=== PATIENT | female | born 1990 | race Caucasian/White ===

== ENCOUNTER 2017-07-26 15:16 | Emergency (ER) | payer OTHER ==
[~2017-07-26] VITALS: Ht 149.9 cm; Wt 90.8 kg
[2017-07-26 15:26] VITALS: Ht 149.9 cm; Wt 90.8 kg
[2017-07-26 16:23] LABS: BASOPHIL % 0.4 % (0-2); PLATELET COUNT 327 x10^3mcL (130-400)
[2017-07-26 16:37] LABS: CALCIUM 8.6 mg/dL (8.5-10.1); CARBON DIOXIDE 30.2 mmol/L (21-32); CHLORIDE SERUM 102 mmol/L (98-107); CREATININE SERUM 0.7 mg/dL (0.6-1.0); GFR1 > 60 mL/min; GLUCOSE SERUM 91 mg/dL (74-106); POTASSIUM SERUM 3.8 mmol/L (3.5-5.1); SODIUM SERUM 140 mmol/L (136-145)
[2017-07-26 16:40] LABS: ALBUMIN 3.5 g/dL (3.4-5.0); ALKALINE PHOSPHATASE 63 U/L (46-116); ALT/SGPT 21 U/L (14-59); AST/SGOT 19 U/L (15-37); BILIRUBIN TOTAL 0.2 mg/dL (0.20-1.00); TOTAL PROTEIN, SERUM 7.3 g/dL (6.4-8.2)
[2017-07-26 17:27] VITALS: BP 110/65
== END 2017-07-26 17:27 | disposition home or self-care (01) ==
LOC: ED 15:16
PROVIDERS: Emergency Medicine
DX: K52.9 Noninfective gastroenteritis and colitis, unspecified (principal); F20.9 Schizophrenia, unspecified
CPT/HCPCS: 36415; J0500; J1885

== ENCOUNTER 2017-07-28 16:55 | Emergency (ER) | payer OTHER ==
[~2017-07-28] VITALS: Ht 149.9 cm; Wt 90.7 kg
[2017-07-28 17:05] VITALS: BP 113/57; Ht 149.9 cm; Wt 90.7 kg
== END 2017-07-28 18:07 | disposition home or self-care (01) ==
LOC: ED 16:55
DX: K59.00 Constipation, unspecified (principal); F20.9 Schizophrenia, unspecified

== ENCOUNTER 2017-09-21 17:17 | Emergency (ER) | payer OTHER ==
[~2017-09-21] VITALS: Ht 149.9 cm; Wt 95.0 kg
[2017-09-21 17:29] VITALS: BP 106/61; Ht 149.9 cm; Wt 95.0 kg
== END 2017-09-21 18:03 | disposition home or self-care (01) ==
LOC: ED 17:17
DX: T63.481A Toxic effect of venom of other arthropod, accidental (unintentional), initial encounter (principal); F20.9 Schizophrenia, unspecified; Y92.89 Other specified places as the place of occurrence of the external cause

== ENCOUNTER 2018-02-27 19:16 | Emergency (ER) | payer OTHER ==
[~2018-02-27] VITALS: Ht 149.9 cm; Wt 91.6 kg
[2018-02-27 19:50] VITALS: Ht 149.9 cm; Wt 91.6 kg
[2018-02-27 22:17] VITALS: BP 123/76
== END 2018-02-27 22:17 | disposition home or self-care (01) ==
LOC: ED 19:16
DX: L25.9 Unspecified contact dermatitis, unspecified cause (principal); I88.9 Nonspecific lymphadenitis, unspecified; F32.9 Major depressive disorder, single episode, unspecified; F20.9 Schizophrenia, unspecified
CPT/HCPCS: J1100; Q0163

== ENCOUNTER 2018-06-12 15:40 | Emergency (ER) | payer MEDICAID ==
[~2018-06-12] VITALS: Ht 149.9 cm; Wt 100.7 kg
[2018-06-12 15:55] VITALS: Ht 149.9 cm; Wt 100.7 kg
[2018-06-12 18:35] VITALS: BP 120/71
== END 2018-06-12 18:35 | disposition home or self-care (01) ==
LOC: ED 15:40
DX: N39.0 Urinary tract infection, site not specified (principal); F31.9 Bipolar disorder, unspecified; Z88.8 Allergy status to other drugs, medicaments and biological substances

== ENCOUNTER 2020-02-23 22:54 | Emergency (ER) | payer MEDICAID ==
[~2020-02-23] VITALS: Ht 149.9 cm; Wt 104.3 kg
[2020-02-23 23:51] VITALS: Ht 149.9 cm; Wt 104.3 kg
[2020-02-24 00:59] VITALS: BP 138/87
== END 2020-02-24 00:59 | disposition home or self-care (01) ==
LOC: ED 22:54
DX: F41.9 Anxiety disorder, unspecified (principal); Z76.0 Encounter for issue of repeat prescription; Z88.8 Allergy status to other drugs, medicaments and biological substances

== ENCOUNTER 2020-02-24 22:59 | Emergency (ER) | payer MEDICAID ==
[~2020-02-24] VITALS: Ht 149.9 cm; Wt 104.3 kg
[2020-02-24 23:09] VITALS: BP 117/74; Ht 149.9 cm; Wt 104.3 kg
== END 2020-02-25 02:31 | disposition left against medical advice (07) ==
LOC: ED 22:59
DX: F41.9 Anxiety disorder, unspecified (principal); Z88.8 Allergy status to other drugs, medicaments and biological substances

== ENCOUNTER 2020-02-25 12:56 | Emergency (ER) | payer MEDICAID ==
[~2020-02-25] VITALS: Ht 149.9 cm; Wt 104.6 kg
[2020-02-25 14:13] VITALS: BP 122/75; Ht 149.9 cm; Wt 104.6 kg
== END 2020-02-25 15:30 | disposition home or self-care (01) ==
LOC: ED 12:56
DX: F41.9 Anxiety disorder, unspecified (principal); E78.00 Pure hypercholesterolemia, unspecified; Z76.0 Encounter for issue of repeat prescription; Z88.8 Allergy status to other drugs, medicaments and biological substances

== ENCOUNTER 2020-04-07 21:49 | Emergency (ER) | payer OTHER ==
[~2020-04-07] VITALS: Ht 149.9 cm; Wt 111.6 kg
[2020-04-07 21:57] VITALS: BP 139/80; Ht 149.9 cm; Wt 111.6 kg
[2020-04-07 23:23] LABS: BASOPHIL % 0.2 % (0.2-1.3); PLATELET COUNT 388 x10^3mcL (179-408); RED CELL DISTRIBUTION WIDTH 14.3 % (12.3-17.7)
[2020-04-07 23:30] LABS: CALCIUM 9.1 mg/dL (8.5-10.1); CARBON DIOXIDE 33.2 mmol/L (21-32); CHLORIDE SERUM 100 mmol/L (98-107); CREATININE SERUM 0.8 mg/dL (0.6-1.0); GFR1 > 60 mL/min; GLUCOSE SERUM 82 mg/dL (74-106); POTASSIUM SERUM 4.1 mmol/L (3.5-5.1); SODIUM SERUM 139 mmol/L (136-145)
[2020-04-07 23:34] LABS: ALBUMIN 3.8 g/dL (3.4-5.0); ALKALINE PHOSPHATASE 59 U/L (46-116); ALT/SGPT 30 U/L (14-59); AST/SGOT 18 U/L (15-37); BILIRUBIN TOTAL 0.1 mg/dL (0.20-1.00); LIPASE 166 IU/L (73-393); TOTAL PROTEIN, SERUM 8.2 g/dL (6.4-8.2)
== END 2020-04-08 00:14 | disposition left against medical advice (07) ==
LOC: ED 21:49
PROVIDERS: Student in an Organized Health Care Education/Training Program
DX: N12 Tubulo-interstitial nephritis, not specified as acute or chronic (principal); E78.00 Pure hypercholesterolemia, unspecified; Z88.8 Allergy status to other drugs, medicaments and biological substances
CPT/HCPCS: J1885; Q0162